=== PATIENT | male | born 1970 | race Caucasian/White ===

== ENCOUNTER 2021-03-20 08:57 | Day surgery (SDC) | payer BC ==
[2021-03-20] MEDS: Lactated Ringers 1,000 ML IV SCH (10:03)
[2021-03-20] MEDS ORDERED: Propofol 200 MG/20 ML SDV ONE ×2 (10:24→12:00)
[2021-03-20] MEDS ORDERED: fentaNYL 100 MCG/2 ML SDV ONE (10:24)
--- NOTE | 2021-03-20 13:30 | OR ---
PREOPERATIVE DIAGNOSIS: Screening colonoscopy. POSTOPERATIVE DIAGNOSES: 1. Colon polyps. 2. Inadequate prep. PROCEDURE PERFORMED: Total flexible colonoscopy with biopsies. ANESTHESIA: MAC anesthesia. COMPLICATIONS: None. BLOOD LOSS: Minimal. FINDINGS: 1. Inadequate prep with large amount of stain prohibiting evaluation of the mucosa. 2. Sigmoid polyp, 2 mm, cold forceps. Start time 11:57, cecum 12:08, stop 12:13. BOWEL PREP: [place] class 1. INDICATION FOR PROCEDURE: Mr. Dhillon is a 50-year-old male here for his first screening colonoscopy. He has no family history of colon cancer. Denies bloody or dark black stools. DETAILS OF PROCEDURE: Informed consent was obtained. The patient was brought to the operating room, placed in left lateral decubitus position. MAC anesthesia was used by Anesthesia colleagues. Colonoscope was introduced into the rectum and advanced all the way to the cecum. The terminal ileum was intubated and photographed. The appendiceal orifice was photographed. The colonoscope was then withdrawn. We noticed there was a large amount of staining in the right and transverse colon which really could not be washed, precluding good evaluation of the mucosa. As we withdrew, we identified one polyp in the sigmoid colon which was removed. A retroflexed view was obtained, and the colonoscope was removed from the patient. He tolerated the procedure well, was awoken from anesthesia by Anesthesia colleagues without incident. PATHOLOGY: Recommend repeat colonoscopy within the next year given poor prep. RKM: 03/20/2021 12:20:32 MODL: 03/20/2021 12:58:52 /[id number]
== END 2021-03-20 13:20 | disposition home or self-care (01) ==
LOC: VM.SDS 08:57
PROVIDERS: ATTEND Student in an Organized Health Care Education/Training Program
DX: Z12.11 Encounter for screening for malignant neoplasm of colon (principal); D12.5 Benign neoplasm of sigmoid colon; I10 Essential (primary) hypertension; J30.9 Allergic rhinitis, unspecified; E78.5 Hyperlipidemia, unspecified; F17.210 Nicotine dependence, cigarettes, uncomplicated
CPT/HCPCS: 00812; 45380; J2704; J3010; J7120

== ENCOUNTER 2024-07-27 15:21 | Emergency (ER) | payer BC ==
[2024-07-27] MEDS: Erythromycin Base 0.5% Ophth Oint 3.5 GM Tube EYERT ONE (16:49)
== END 2024-07-27 16:55 | disposition home or self-care (01) ==
LOC: VM.ED 15:21
DX: H11.31 Conjunctival hemorrhage, right eye (principal); E78.00 Pure hypercholesterolemia, unspecified; I10 Essential (primary) hypertension; Z88.1 Allergy status to other antibiotic agents; Z79.899 Other long term (current) drug therapy; Z90.49 Acquired absence of other specified parts of digestive tract
CPT/HCPCS: 99283; A9270-GY